=== PATIENT | female | born 1980 | race Two or more races ===

== ENCOUNTER 2023-09-27 15:41 | Emergency (ER) | payer MEDICAID, OTHER ==
[~2023-09-27] VITALS: Ht 167.6 cm; Wt 107.0 kg
[2023-09-27 16:53] LABS: Alanine Aminotransferase 60 U/L (7-40); Albumin 4.4 g/dL (3.2-4.8); Alkaline Phosphatase 145 U/L (46-116); Anion Gap 5 (5-15); Aspartate Aminotransferase 20 U/L (13-40); BUN/Creatinine Ratio 15.1 (10.0-20.0); Basophils # (auto) 0 10 ^3/uL (0-0.2); Basophils % (auto) 0.4 % (0.0-2.0); Bilirubin, Total 0.7 mg/dL (0.2-1.0); Blood Urea Nitrogen 11 mg/dL (9-23); Calcium 9.6 mg/dL (8.5-10.1); Carbon Dioxide 27 mmol/L (20-30); Chloride 109 mmol/L (98-107); Eosinophils # (auto) 0.1 10 ^3/uL (0-0.8); Eosinophils % (auto) 1.3 % (0.0-7.0); Glucose 83 mg/dL (74-106); Hematocrit 42.2 % (36.0-46.0); Hemoglobin 13.6 g/dL (12.2-16.2); Lymphocytes # (auto) 3.1 10 ^3/uL (0.4-5.4); Mean Corpuscular Hemoglobin 28.1 pg (28.0-32.0); Mean Corpuscular Hgb Conc. 32.1 g/dL (32.0-36.0); Mean Corpuscular Volume 87.6 fL (80.0-100.0); Monocytes # (auto) 0.7 10 ^3/uL (0-1.3); Monocytes % (auto) 8.6 % (0.0-12.0); Neutrophils % (auto) 50.7 % (37.0-80.0); Nucleated Red Blood Cells % 0.1 %; Potassium 3.6 mmol/L (3.5-5.1); Red Blood Cells 4.82 10^6/uL (4.0-5.20); Red Cell Distribution Width 13.6 % (11.8-14.3); Sodium 141 mmol/L (136-145); Total Protein 7.5 g/dL (5.7-8.2); White Blood Cell 7.9 10^3/uL (4.4-10.8)
[2023-09-27 17:06] LABS: Urine Bacteria NONE SEEN /hpf (None Seen); Urine Blood TRACE /uL (Negative); Urine Clarity Clear (Clear); Urine Color Colorless (Yellow); Urine Mucus FEW (None Seen); Urine Protein, UAD Negative (Negative); Urine Specific Gravity 1.018 (1.001-1.035); Urine Urobilinogen Normal (Negative); Urine WBC 3 /hpf (0 - 5); Urine pH 5.5 (5.0-9.0)
[2023-09-27] MEDS ORDERED: IBU600T PO (19:12)
[2023-09-27 19:56] VITALS: BP 153/96; PULSE 91; RESP 16; TEMP 98.5; O2SAT 94
== END 2023-09-27 19:56 | disposition home or self-care (01) ==
LOC: ER 15:41
DX: N20.0 Calculus of kidney (principal); R10.2 Pelvic and perineal pain; M17.12 Unilateral primary osteoarthritis, left knee; R10.31 Right lower quadrant pain; J45.909 Unspecified asthma, uncomplicated; Z98.890 Other specified postprocedural states
CPT/HCPCS: 36415; 73560; 74176; 80053; 81001; 84702; 85025